=== PATIENT | female | born 1960 | race Caucasian/White ===

== ENCOUNTER 2020-03-14 15:11 | Emergency (ER) | payer OTHER, MEDICAID, SELFPAY ==
--- NOTE | ~2020-03-14 | CT_ITS ---
EXAMINATION: CT ANGIOGRAM OF THE CHEST WITH AND WITHOUT CONTRAST (CT PULMONARY ANGIOGRAM FOR PE) CLINICAL INFORMATION: Reason for Exam l chest pain with hx of lung ca ?PE COMPARISON: None TECHNIQUE: Prior to contrast administration, noncontrast localization images were obtained. Subsequently, multidetector volumetric imaging was performed from the thoracic inlet to below the diaphragms following the administration of 65 mL Omnipaque 350 intravenous contrast. No contrast reaction reported Sagittal, coronal, and MIP oblique sagittal reformatted images were obtained on the CT workstation, uploaded to PACS, and reviewed. This CT examination was performed using dose optimization techniques as appropriate, variously including the following: *Automated exposure control *Adjustment of mA and/or kV according to patient size (this includes techniques or standardized protocols for targeted exams where dose is matched to indication/reason for exam; i.e. extremities or head) *Use of iterative reconstruction technique Total exam dose-length product 240 mGy-cm FINDINGS: QUALITY OF STUDY/CONTRAST BOLUS: Satisfactory. PULMONARY ARTERIES: No central or segmental pulmonary emboli. THORACIC AORTA: No aneurysm or dissection. Scattered atherosclerotic calcifications and plaques. LUNG: There is paraseptal emphysematous change and pleural scarring in the bilateral lung apices. Mild centrilobular emphysematous change. There are scattered calcified granulomas (for example in the right middle lobe, series 6, image 215 and in the peripheral aspect of the left lower lobe, series 6, image 351). There is dependent atelectasis at the bilateral lung bases. No focal consolidation. No suspicious nodule or mass. PLEURA: No pleural effusion or pneumothorax. MEDIASTINUM: Normal heart size. No pericardial effusion. There is an enlarged right hilar lymph node that measures up to 1.3 cm in short axis. There is a prominent prevascular node that measures up to 0.7 cm in short axis.. No evidence of septal bowing or right heart strain. There is a right chest port with tip of the catheter in the right atrium. CHEST WALL/AXILLA: No axillary or internal mammary lymphadenopathy. OSSEOUS STRUCTURES: There is a mixed lytic and sclerotic appearance to the upper aspect of the sternal body (series 8, image 44). There is sclerotic change to the anterolateral right third rib (series 6, image 126). There is sclerotic change to the anterior right fourth rib at the costochondral junction. UPPER ABDOMEN: Unremarkable. No reflux of contrast into the hepatic veins to suggest elevated right heart pressures. CT/CT angio chest PE protocol IMPRESSION: 1. No evidence for pulmonary embolism. 2. Mild paraseptal and centrilobular emphysematous change. Dependent atelectasis at the bilateral lung bases. 3. Mixed lytic and sclerotic appearance to the upper aspect of the sternal body. Sclerotic change to the anterolateral right third rib and anterior right fourth rib. Findings are concerning for metastatic disease. Recommend correlation with any history of malignancy VTE: negative
--- NOTE | 2020-03-14 15:15 | ECG_ITS ---
Test Reason : CHEST PAIN Blood Pressure : / mmHG Vent. Rate : 110 BPM Atrial Rate : 110 BPM P-R Int : 130 ms QRS Dur : 070 ms QT Int : 336 ms P-R-T Axes : 029 023 094 degrees QTc Int : 454 ms Sinus tachycardia with Premature atrial complexes Nonspecific ST and T wave abnormality Abnormal ECG No previous ECGs available Referred By: Generic ED Physician Electronically Signed By:LARISSA ARRIETA
--- NOTE | 2020-03-14 15:27 | ED_ITS ---
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 Patient denies any coronary artery disease today what 2 hours prior to arrival while resting all of a sudden patient noticed left-sided squeezing pain radiating to l eft shoulder little nausea no vomiting no diaphoresis no shortness of breath pain is continues with intermittent increase in pain never had similar pain in the past denies any shortness of breath no syncope no palpitation never had similar pain in the past MD complaint: chest heaviness Timing of current episode: constant Prior episodes: No Onset: during rest Pain location: left chest Pain radiation: left arm Severity: moderate Relieving factors: nothing Exacerbating factors: nothing Context: recent illness Related Data Previous Rx's Medication Instructions Recorded oxycodone 5 mg PO Q6H PRN #20 tab 03/14/20 Allergies Allergy/AdvReac Type Severity Reaction Status Date / Time morphine Allergy Rash Verified 03/14/20 15:34 Review of Systems Review of Systems: Constitutional : No Weight loss, No Fever, No Chills ENT/Mouth : No sore throat, No Rhinorrhea Eyes: No Eye Pain, No Swelling Cardiovascular :++ Chest Pain, no palpitations Respiratory : No Cough, No Sputum, no shortness of breath Gastrointestinal : no Nausea, No Vomiting, No Diarrhea, No abdominal Pain, no black stools Genitourinary : No Dysuria, No Urinary Frequency Musculoskeletal : No joint pain, No Myalgias, No Joint Swelling Skin : No Skin Lesions, No rash Neuro : No Weakness, No Numbness, No Dizziness, No Headache Psych : No Anxiety/Panic, No Depression Heme/Lymph: No Bruising, No Lymphadenopathy Endocrine : No Polyuria, No Polydipsia All other systems reviewed and are negative [facility] Past Medical History Medical History Lung cancer Vasculitis Social History Social History Alcohol intake: never Smoking Status: Current every day smoker Use of substances other than those prescribed or required for medical reasons: No Advance Directives: No Advance Directives Information Provided: No Physical Exam Vital Signs: Vital Signs: Last Vital Signs Temp 99.1 F 03/14/20 19:18 Pulse 91 03/14/20 19:18 Resp 23 H 03/14/20 19:18 BP 154/67 H 03/14/20 19:18 Pulse Ox 93 03/14/20 19:18 Body Mass Index 25.7 Appearance: Alert. Oriented X3. No acute distress. Eyes: Pupils equal, round and reactive to light. ENT: Pharynx normal. Neck: Normal inspection. Neck supple. CVS: Normal heart rate and rhythm. Pulses normal. Tender to touch in mid sternum Respiratory: No respiratory distress. Breath sounds normal. Abdomen: Soft and nontender. Bowel sounds are present, no mass palpable, no CVA tenderness Skin: Skin warm and dry. Normal skin color. Normal skin turgor. Extremities: No lower extremity edema. Neuro: Oriented X 3. No motor deficit. No sensory deficit. MDM - Chest Pain MDM Narrative Medical decision making narrative: Patient with chest pain with lung cancer with Mets to the disk and tape machine tender to palpation where she has pain cardiac enzymes 2 sets negative EKG without any acute ST T wave changes CT of cysts of the chest negative for PE but showed lytic lesions in the sternum likely the cause of pain. Patient advised to follow-up with auxiliary engineer/oncologist for her lung cancer Differential Diagnosis Differential diagnosis: Likely unstable angina pectoris, atypical chest pain and chest pain Lab Data Attestation: I reviewed the patient's lab results. Result diagrams: 03/14/20 15:51 03/14/20 15:51 Labs: Lab Results 03/14/20 03/14/20 03/14/20 Range/Units 15:51 15:51 15:51 WBC 9.0 (4.8-10.8) X10*3/uL RBC 4.84 (4.20-5.50) X10*6/uL Hgb 11.9 L (12.0-16.0) g/dl Hct 37.8 (37-47) % MCV 78.1 L (80-98) fL MCH 24.6 L (27.0-33.0) pg MCHC 31.5 (31.0-35.0) g/dl RDW 17.1 H (11.0-16.0) % Plt Count 377 (160-400) X10*3/uL MPV 10.0 (9.4-12.3) fL Immature Gran % (Auto) 0.2 (0.0-0.4) % Neut % (Auto) 57.8 (45-73) % Lymph % (Auto) 33.0 (20-40) % [place] % (Auto) 6.8 (2-11) % Eos % (Auto) 1.4 (0-4) % Baso % (Auto) 0.8 (0-2) % Lymph # (Auto) 3.0 (1.2-4.9) X10*3/uL [place] # (Auto) 0.6 (0.1-1.2) X10*3/uL Eos # (Auto) 0.1 (0.0-0.4) X10*3/uL Baso # (Auto) 0.1 (0.0-0.2) X10*3/uL Abs Immat Gran (auto) 0.02 (0.00-0.03) X10*3/uL Absolute Neuts (auto) 5.2 (2.0-8.3) X10*3/uL Absolute Nucleated RBC 0.000 (0.0-0.012) X10*3/uL Nucleated RBC % (auto) 0.0 (0.0-0.2) /100WBC PT 13.8 H (10.8-13.0) SEC INR 1.2 H (0.9-1.1) APTT 42.2 H (24.1-38.0) SEC Sodium 137 (135-145) mmol/L Potassium 3.4 (3.3-5.1) mmol/L Chloride 101 (96-108) mmol/L Carbon Dioxide 25 (22-29) mmol/L Anion Gap 14 (12-20) BUN 11 (9-16) mg/dL Creatinine 0.62 (0.5-1.4) mg/dL Estim Creat Clear Calc 93.7 Estimated GFR > 60 Random Glucose 129 H (60-115) mg/dL Calcium 8.6 (8.4-10.2) mg/dL Total Bilirubin 0.3 (0.0-1.0) mg/dL Direct Bilirubin < 0.2 (0.0-0.5) mg/dL AST 18 (5-31) U/L ALT 21 (0-31) U/L Alkaline Phosphatase 72 (39-117) U/L Troponin I High Sens (<3.5-17.0) ng/L Total Protein 6.3 L (6.5-8.0) g/dL Albumin 3.6 (3.5-5.0) g/dL 03/14/20 03/14/20 Range/Units 15:51 19:21 WBC (4.8-10.8) X10*3/uL RBC (4.20-5.50) X10*6/uL Hgb (12.0-16.0) g/dl Hct (37-47) % MCV (80-98) fL MCH (27.0-33.0) pg MCHC (31.0-35.0) g/dl RDW (11.0-16.0) % Plt Count (160-400) X10*3/uL MPV (9.4-12.3) fL Immature Gran % (Auto) (0.0-0.4) % Neut % (Auto) (45-73) % Lymph % (Auto) (20-40) % [place] % (Auto) (2-11) % Eos % (Auto) (0-4) % Baso % (Auto) (0-2) % Lymph # (Auto) (1.2-4.9) X10*3/uL [place] # (Auto) (0.1-1.2) X10*3/uL Eos # (Auto) (0.0-0.4) X10*3/uL Baso # (Auto) (0.0-0.2) X10*3/uL Abs Immat Gran (auto) (0.00-0.03) X10*3/uL Absolute Neuts (auto) (2.0-8.3) X10*3/uL Absolute Nucleated RBC (0.0-0.012) X10*3/uL Nucleated RBC % (auto) (0.0-0.2) /100WBC PT (10.8-13.0) SEC INR (0.9-1.1) APTT (24.1-38.0) SEC Sodium (135-145) mmol/L Potassium (3.3-5.1) mmol/L Chloride (96-108) mmol/L Carbon Dioxide (22-29) mmol/L Anion Gap (12-20) BUN (9-16) mg/dL Creatinine (0.5-1.4) mg/dL Estim Creat Clear Calc Estimated GFR Random Glucose (60-115) mg/dL Calcium (8.4-10.2) mg/dL Total Bilirubin (0.0-1.0) mg/dL Direct Bilirubin (0.0-0.5) mg/dL AST (5-31) U/L ALT (0-31) U/L Alkaline Phosphatase (39-117) U/L Troponin I High Sens 6.7 6.9 (<3.5-17.0) ng/L Total Protein (6.5-8.0) g/dL Albumin (3.5-5.0) g/dL ECG Data ECG #1: Attestation: I personally reviewed and interpreted this ECG as follows: Interpretation: Sinus tachycardia with heart rate of 110 beats per minute slight ST depression in V5 for V5 V6 no reciprocal changes normal axis normal intervals Discharge Plan Discharge Clinical Impression: Atypical chest pain, Lung cancer metastatic to bone Patient Disposition: Home, Self-Care Instructions: Chest Pain (ED), Lung Cancer (DC), Bone Metastasis (ED) Additional Instructions: Rest at home follow-up with your oncologist as scheduled take pain medication as advised Prescriptions: New oxycodone 5 mg tablet 5 mg PO Q6H PRN (Reason: Pain (Scale Score 4-6)) Qty: 20 RF: 0 Interventions: ED Discharge Assessment Last Done: 03/14/20 21:00 Discharge Date/Time: 03/14/20 21:00
[2020-03-14 15:31] VITALS: BP 129/56; PULSE 100; RESP 16; TEMP 37.1; O2SAT 97; BMI 25.7
[2020-03-14 15:55] VITALS: BP 125/60; PULSE 89; RESP 16
[2020-03-14] MEDS: HYDROmorphone HCl 0.5 MG/0.5 ML SYRINGE IVPUSH (15:55)
[2020-03-14] MEDS: Aspirin 81 MG TAB.CHEW 162 MG PO (15:55)
[2020-03-14] MEDS: Nitroglycerin 2 % Oint 1 GM Packet 0.5 INCH TRANSDERMA (15:55)
[2020-03-14 15:56] LABS: Basophils Absolute Auto 0.1 X10*3/uL (0.0-0.2); Basophils Percent Auto 0.8 % (0-2); Eosinophils Absolute Auto 0.1 X10*3/uL (0.0-0.4); Eosinophils Percent Auto 1.4 % (0-4); Hematocrit 37.8 % (37-47); Hemoglobin 11.9 g/dl (12.0-16.0); Imm Gran Abs Auto 0.02 X10*3/uL (0.00-0.03); Imm Gran Pct Auto 0.2 % (0.0-0.4); Mean Corpuscular HGB Conc 31.5 g/dl (31.0-35.0); Mean Corpuscular Hemoglobin 24.6 pg (27.0-33.0); Mean Corpuscular Volume 78.1 fL (80-98); Monocytes Absolute Auto 0.6 X10*3/uL (0.1-1.2); Monocytes Percent Auto 6.8 % (2-11); Neutrophils Absolute Auto 5.2 X10*3/uL (2.0-8.3); Neutrophils Percent Auto 57.8 % (45-73); Platelet Count 377 X10*3/uL (160-400); Red Blood Count 4.84 X10*6/uL (4.20-5.50); Red Cell Distribution Width 17.1 % (11.0-16.0)
[2020-03-14 15:57] LABS: MANUAL DIFF FLAG NO
[2020-03-14] MEDS: ondansetron HCL 4 MG/2 ML VIAL IVPUSH (15:57)
[2020-03-14 16:03] LABS: INTERNATIONAL NORM RATIO 1.2 (0.9-1.1); Prothrombin Time 13.8 SEC (10.8-13.0)
[2020-03-14 16:06] LABS: Partial Thromboplastin Time 42.2 SEC (24.1-38.0)
[2020-03-14 16:21] LABS: Alanine Aminotransferase 21 U/L (0-31); Albumin Level 3.6 g/dL (3.5-5.0); Alkaline Phosphatase 72 U/L (39-117); Anion Gap 14 (12-20); Aspartate Amino Transferase 18 U/L (5-31); Bilirubin Direct < 0.2 mg/dL (0.0-0.5); Bilirubin Total 0.3 mg/dL (0.0-1.0); Blood Urea Nitrogen 11 mg/dL (9-16); Calcium 8.6 mg/dL (8.4-10.2); Carbon Dioxide 25 mmol/L (22-29); Chloride 101 mmol/L (96-108); Creatinine Clr Calc Pharmacy 93.7; Estimated Glomerular Filt Rate > 60; Glucose Random 129 mg/dL (60-115); Potassium 3.4 mmol/L (3.3-5.1); Sodium 137 mmol/L (135-145); Total Protein 6.3 g/dL (6.5-8.0)
[2020-03-14 16:26] LABS: Troponin-I High Sensitivity 6.7 ng/L (<3.5-17.0)
[2020-03-14] MEDS: iohexoL 350 MG/ML 100 ML INFUS..BTL IV (17:58)
[2020-03-14 19:18] VITALS: BP 154/67; PULSE 91; RESP 23; TEMP 37.3; O2SAT 93
[2020-03-14] MEDS: HYDROmorphone HCl 1 MG/ML SYRINGE IVPUSH (19:18)
[2020-03-14 20:04] LABS: Troponin-I High Sensitivity 6.9 ng/L (<3.5-17.0)
== END 2020-03-14 21:00 | disposition home or self-care (01) ==
PROVIDERS: Emergency Provider Internal Medicine; PCP Internal Medicine
DX: R07.89 Other chest pain (principal); C34.90 Malignant neoplasm of unspecified part of unspecified bronchus or lung; C79.51 Secondary malignant neoplasm of bone; F17.200 Nicotine dependence, unspecified, uncomplicated; Z71.6 Tobacco abuse counseling; Z79.899 Other long term (current) drug therapy
CPT/HCPCS: 36415; 71275; 80048; 80076; 84484; 85025; 85610; 85730; 93005; 96374; 96375; 96376; 99284; J1170; J1642; J2405; Q9967

== ENCOUNTER 2020-07-07 08:42 | Outpatient (REF) | payer OTHER, MEDICARE, SELFPAY | END 2020-07-07 08:43 | disposition home or self-care (01) | LOC: HO.LAB 08:42 | PROVIDERS: PCP Internal Medicine; Visit Provider Hospitalist | DX: J41.1 Mucopurulent chronic bronchitis (principal); C34.90 Malignant neoplasm of unspecified part of unspecified bronchus or lung; C79.9 Secondary malignant neoplasm of unspecified site; S22.49XS Multiple fractures of ribs, unspecified side, sequela; X58.XXXS Exposure to other specified factors, sequela; F17.210 Nicotine dependence, cigarettes, uncomplicated; Z88.5 Allergy status to narcotic agent; Z79.891 Long term (current) use of opiate analgesic; Z79.52 Long term (current) use of systemic steroids; Z79.899 Other long term (current) drug therapy | CPT/HCPCS: 87070; 87205 ==

== ENCOUNTER 2020-07-21 08:50 | Outpatient (REF) | payer OTHER, MEDICAID, MEDICARE, SELFPAY ==
--- NOTE | 2020-07-21 17:31 | PFT_ITS ---
INDICATION: Chronic bronchitis. SPIROMETRY: The FEV1 to FVC of 81% with an FEV1 of 1.9 L, which is 72% predicted and FVC of 2.34 L, which is 70% predicted. No significant response to bronchodilators noted. Maximum voluntary ventilation 102% predicted. LUNG VOLUMES: Total lung capacity 85% predicted with residual volume of 102% predicted and expiratory reserve volume of 20% predicted. DIFFUSION CAPACITY: DLCO 60% predicted. INTERPRETATION: No obstructive nor restrictive ventilatory defects identified. No significant response to bronchodilators noted, although there was a trend. Normal maximum voluntary ventilation. Lung volumes are within normal limits except for decrease in the expiratory reserve volume. In addition to that, there is a moderate diffusion impairment. Clinical correlation warranted. Manpreet Esquivel MD MR/MODL / [id number]
== END 2020-07-21 08:51 | disposition home or self-care (01) ==
LOC: HO.RESP 08:50
PROVIDERS: PCP Internal Medicine; Visit Provider Hospitalist
DX: J41.1 Mucopurulent chronic bronchitis (principal)
CPT/HCPCS: 94060; 94727; 94729

== ENCOUNTER → 2020-08-17 08:53 | Outpatient (BNVA) | payer OTHER, MEDICAID, SELFPAY | PROVIDERS: PCP Internal Medicine; Visit Provider Hospitalist | DX: J44.9 Chronic obstructive pulmonary disease, unspecified (principal) ==

== ENCOUNTER 2020-12-13 13:56 | Emergency (ER) | payer OTHER, MEDICAID, SELFPAY ==
--- NOTE | 2020-12-13 | ECG_ITS ---
Test Reason : CHEST PAIN Blood Pressure : / mmHG Vent. Rate : 081 BPM Atrial Rate : 081 BPM P-R Int : 120 ms QRS Dur : 072 ms QT Int : 390 ms P-R-T Axes : 054 031 062 degrees QTc Int : 453 ms Normal sinus rhythm Normal ECG Heart rate has decreased Referred By: Generic ED Physician Electronically Signed By:SHAWNEE SWENSON MD
--- NOTE | ~2020-12-13 | XR_ITS ---
EXAMINATION: PORTABLE CHEST 1 VIEW CLINICAL INFORMATION: L upper CP, hx sternal/bone CA . COMPARISON: 03/14 CT scan. TECHNIQUE: Portable frontal view of the chest was obtained. FINDINGS: Lungs well-expanded with no superimposed focal infiltrate, effusion, edema, or pneumothorax. Right-sided chest port is seen with the tip near the expected cavoatrial junction. Cardiac mediastinal silhouettes within normal limits for size. I do not appreciate any acute bony abnormality on this portable chest x-ray. The changes in the bilateral ribs and sternum were much better delineated on the prior CT scan the chest XR/XR chest 1V IMPRESSION: Right-sided chest port. I do not appreciate any acute airspace disease or edema.
[2020-12-13 14:33] VITALS: BP 159/62; PULSE 76; RESP 16; TEMP 36.1; O2SAT 95; BMI 25.2
--- NOTE | 2020-12-13 14:40 | ED_ITS ---
HPI - Chest Pain General Chief Complaint: Chest Pain Stated Complaint: chest pain Time Seen by Provider: 12/13/20 14:31 Source: patient Mode of arrival: ambulatory Limitations: no limitations History of Present Illness HPI narrative: Patient comes emergency room complaining of left-sided chest pain. Patient states that the pain has been constant on the left side of the chest for 2 months, this morning she woke up with significant chest pain on left side, got worse over the last 3 hours. Patient states it is a specific spot. Patient has been diagnosed previously with lung cancer with metastasis to the pancreas, right hip and sternum. Patient states that this pain is from a year to her, usually resolves with oral pain medication/oxycodone. However, this time the pain continued and actually got worse. Patient states she has no shortness of breath, denies any injuries, no heavy lifting. Patient states that she finished immunotherapy, patient is currently being evaluated for further treatment, undecided this patient will need radiation. Patient has several imaging studies coming up in the next couple of weeks. Related Data Home Medications Medication Instructions Recorded Confirmed atorvastatin 80 mg tablet 80 mg PO BEDTIME 07/07/20 08/17/20 clonazepam 0.5 mg tablet [id number]? mg PO TID PRN 07/07/20 08/17/20 omeprazole 40 mg capsule,delayed 40 mg PO DAILY 07/07/20 08/17/20 release paroxetine HCl 30 mg tablet 60 mg PO QAM 07/07/20 08/17/20 prednisone 20 mg tablet 40 mg PO BID 07/07/20 08/17/20 prochlorperazine maleate 10 mg 10 mg PO Q6H PRN 07/07/20 08/17/20 tablet fluconazole 200 mg tablet 200 mg PO DAILY 08/17/20 08/17/20 Previous Rx's Medication Instructions Recorded oxycodone 5 mg tablet 5 mg PO Q6H PRN #20 tab 03/14/20 albuterol sulfate 2.5 mg (3 mL) INHALATION Q4H PRN 07/07/20 30 Days #180 ml albuterol sulfate 90 mcg/actuation 2 puff INHALATION QID PRN #8.5 g 07/07/20 aerosol inhaler Symbicort 160 mcg-4.5 2 puff INHALATION BID 30 Days 07/09/20 mcg/actuation HFA aerosol inhaler #10.2 g NS (budesonide-formoterol) Allergies Allergy/AdvReac Type Severity Reaction Status Date / Time morphine Allergy Rash Verified 08/17/20 09:07 Review of Systems Review of Systems: Constitutional : No Weight loss, No Fever, No Chills, No Night Sweats, No Fatigue, No Malaise ENT/Mouth : No Hearing loss, No Ear Pain, No Nasal Congestion, No Sinus Pain, No Hoarseness, No sore throat, No Rhinorrhea, No Swallowing Difficulty Eyes: No Eye Pain, No Swelling, No Redness, No Foreign Body, No Discharge, No Vision Changes Cardiovascular : Complaining of left-sided bony chest pain, No SOB, No Dyspnea on Exertion, No Orthopnea, No Edema, No Palpitations Respiratory : No Cough, No Sputum, No Wheezing, No Smoke Exposure, No Dyspnea Gastrointestinal : No Nausea, No Vomiting, No Diarrhea, No Constipation, No abdominal Pain, No Hematochezia, No Melena Genitourinary : no irregular bleeding, No Dysuria, No Urinary Frequency, No Hematuria, No Urinary Incontinence, No Urgency, No Flank Pain, No Urinary Flow Changes, No Hesitancy Musculoskeletal : No joint pain, No Myalgias, No Joint Swelling Skin : No Skin Lesions, No rash Neuro : No Weakness, No Numbness, No Paresthesias, No Loss of Consciousness, No Dizziness, No Headache Psych : No Anxiety/Panic, No Depression, No SI/HI/AH/VH, No Social Issues, Heme/Lymph: No Bruising, No Bleeding,No Lymphadenopathy Endocrine : No Polyuria, No Polydipsia, No Temperature Intolerance [facility] Past Medical History Medical History Lung cancer Pulmonary nodule Rib fractures Vasculitis Social History Social History (Updated 07/07/20 @ 08:54 by YESY Salinas) Alcohol intake: never Patient Tobacco Use Status: Current everyday Tobacco user Tobacco use type: Cigarette Years Smoked: 43 years Advance Directives: No Advance Directives Information Provided: Yes Physical Exam Vital Signs: Vital Signs: Last Vital Signs Temp 97 F 12/13/20 14:33 Pulse 76 12/13/20 14:33 Resp 16 12/13/20 14:33 BP 159/62 H 12/13/20 14:33 Pulse Ox 95 12/13/20 14:33 Body Mass Index 25.2 Const: Other: Appearance: Alert. Oriented X3. No acute distress. Eyes: Pupils equal, round and reactive to light. ENT: Pharynx normal. Neck: Normal inspection. Neck supple. No lymph nodes noted. No crepitus CVS: Normal heart rate and rhythm. Pulses normal. Normal S1 and S2, reproducible chest pain to palpation over the anterior ribs, palpable port Respiratory: No respiratory distress. Breath sounds normal. No Wheezing. No rales Abdomen: Soft and nontender. No rigidity. No distention. Skin: Skin warm and dry. Normal skin color. Normal skin turgor. Extremities: No lower extremity edema. No Lacerations. No Rash Neuro: Oriented X 3. No motor deficit. No sensory deficit. Moving all extermities. No slurred speech. Course Course Course Narrative: Patient states the pain improved but she still having some pain over her ribs. I discussed with the patient that the D-dimer/troponin/EKG were all normal. Patient states that she has a CT scan/CT scan pending in couple of weeks. No obvious bony deformities, discussed with the patient that x-ray is not the most specific test for bone lesions. Patient will follow-up with her PCP and specialists MDM - Chest Pain Lab Data Result diagrams: 12/13/20 15:21 12/13/20 15:21 Labs: Lab Results 12/13/20 12/13/20 12/13/20 Range/Units 15:21 15:21 15:21 WBC 8.8 (4.8-10.8) X10*3/uL RBC 4.60 (4.20-5.50) X10*6/uL Hgb 12.9 (12.0-16.0) g/dl Hct 40.0 (37.0-47.0) % MCV 87.0 (80.0-98.0) fL MCH 28.0 (27.0-33.0) pg MCHC 32.3 (31.0-35.0) g/dl RDW 15.9 (11.0-16.0) % Plt Count 332 (160-400) X10*3/uL MPV 10.1 (9.4-12.3) fL Immature Gran % (Auto) 0.1 (0.0-0.4) % Neut % (Auto) 80.8 H (45-73) % Lymph % (Auto) 16.7 L (20-40) % [place] % (Auto) 1.5 L (2-11) % Eos % (Auto) 0.1 (0-4) % Baso % (Auto) 0.8 (0-2) % Lymph # (Auto) 1.5 (1.2-4.9) X10*3/uL [place] # (Auto) 0.1 (0.1-1.2) X10*3/uL Eos # (Auto) 0.0 (0.0-0.4) X10*3/uL Baso # (Auto) 0.1 (0.0-0.2) X10*3/uL Abs Immat Gran (auto) 0.01 (0.00-0.03) X10*3/uL Absolute Neuts (auto) 7.1 (2.0-8.3) x10*3/uL Absolute Nucleated RBC 0.000 (0.0-0.012) X10*3/uL Nucleated RBC % (auto) 0.0 (0.0-0.2) /100WBC D-Dimer NG/ML Sodium 140 (135-145) mmol/L Potassium 4.2 D (3.3-5.1) mmol/L Chloride 105 (96-108) mmol/L Carbon Dioxide 28 (22-29) mmol/L Anion Gap 11 L (12-20) BUN 10 (9-16) mg/dL Creatinine 0.58 (0.5-1.4) mg/dL Estim Creat Clear Calc 99.3 Estimated GFR > 60 Random Glucose 138 H (60-115) mg/dL Calcium 9.0 (8.4-10.2) mg/dL Total Bilirubin 0.2 (0.0-1.0) mg/dL Direct Bilirubin < 0.2 (0.0-0.5) mg/dL AST 12 (5-31) U/L ALT 11 (0-31) U/L Alkaline Phosphatase 56 D (39-117) U/L Troponin I High Sens 4.6 (<3.5-17.0) ng/L Total Protein 6.8 (6.5-8.0) g/dL Albumin 3.8 (3.5-5.0) g/dL 12/13/20 Range/Units 15:21 WBC (4.8-10.8) X10*3/uL RBC (4.20-5.50) X10*6/uL Hgb (12.0-16.0) g/dl Hct (37.0-47.0) % MCV (80.0-98.0) fL MCH (27.0-33.0) pg MCHC (31.0-35.0) g/dl RDW (11.0-16.0) % Plt Count (160-400) X10*3/uL MPV (9.4-12.3) fL Immature Gran % (Auto) (0.0-0.4) % Neut % (Auto) (45-73) % Lymph % (Auto) (20-40) % [place] % (Auto) (2-11) % Eos % (Auto) (0-4) % Baso % (Auto) (0-2) % Lymph # (Auto) (1.2-4.9) X10*3/uL [place] # (Auto) (0.1-1.2) X10*3/uL Eos # (Auto) (0.0-0.4) X10*3/uL Baso # (Auto) (0.0-0.2) X10*3/uL Abs Immat Gran (auto) (0.00-0.03) X10*3/uL Absolute Neuts (auto) (2.0-8.3) x10*3/uL Absolute Nucleated RBC (0.0-0.012) X10*3/uL Nucleated RBC % (auto) (0.0-0.2) /100WBC D-Dimer < 200 NG/ML Sodium (135-145) mmol/L Potassium (3.3-5.1) mmol/L Chloride (96-108) mmol/L Carbon Dioxide (22-29) mmol/L Anion Gap (12-20) BUN (9-16) mg/dL Creatinine (0.5-1.4) mg/dL Estim Creat Clear Calc Estimated GFR Random Glucose (60-115) mg/dL Calcium (8.4-10.2) mg/dL Total Bilirubin (0.0-1.0) mg/dL Direct Bilirubin (0.0-0.5) mg/dL AST (5-31) U/L ALT (0-31) U/L Alkaline Phosphatase (39-117) U/L Troponin I High Sens (<3.5-17.0) ng/L Total Protein (6.5-8.0) g/dL Albumin (3.5-5.0) g/dL Imaging Data Chest x-ray: Radiologist's impression: FINDINGS: Lungs well-expanded with no superimposed focal infiltrate, effusion, edema, or pneumothorax. Right-sided chest port is seen with the tip near the expected cavoatrial junction. Cardiac mediastinal silhouettes within normal limits for size. I do not appreciate any acute bony abnormality on this portable chest x-ray. The changes in the bilateral ribs and sternum were much better delineated on the prior CT scan the chest XR/XR chest 1V IMPRESSION: Right-sided chest port. I do not appreciate any acute airspace disease or edema. ECG Data ECG #1: Attestation: I personally reviewed and interpreted this ECG as follows: (Sign out for, her ID 1, no ST segment depression or elevation, no T-wave inversion, QTC 453) Discharge Plan Discharge Clinical Impression: Costochondritis, Atypical chest pain Patient Disposition: Home, Self-Care Instructions: Costochondritis (ED) Additional Instructions: Please follow-up with your primary care physician tomorrow. If you have any worsening or new symptoms, please return to the emergency room or call 911 Prescriptions: No Action budesonide-formoterol [Symbicort] 160-4.5 mcg/actuation HFA aerosol inhaler 2 puff inhalation BID 30 Days Qty: 10.2 RF: 11 oxycodone 5 mg tablet 5 mg PO Q6H PRN (Reason: Pain (Scale Score 4-6)) Qty: 20 RF: 0 fluconazole 200 mg tablet 200 mg PO DAILY RF: 0 levalbuterol HCl 1.25 mg/3 mL solution for nebulization 1.25 mg inhalation ONCE Qty: 3 RF: 0 sodium chloride 0.9 % solution for nebulization 4 ml inhalation ONCE Qty: 4 RF: 0 clonazepam 0.5 mg tablet [id number]? mg PO TID PRN (Reason: anxiety) RF: 0 paroxetine HCl 30 mg tablet 60 mg PO QAM RF: 0 prednisone 20 mg tablet 40 mg PO BID RF: 0 prochlorperazine maleate 10 mg tablet 10 mg PO Q6H PRN (Reason: nausea/vomiting) RF: 0 atorvastatin 80 mg tablet 80 mg PO BEDTIME RF: 0 omeprazole 40 mg capsule,delayed release(DR/EC) 40 mg PO DAILY RF: 0 albuterol sulfate 90 mcg/actuation HFA aerosol inhaler 2 puff inhalation QID PRN (Reason: wheezing) Qty: 8.5 RF: 11 albuterol sulfate 2.5 mg /3 mL (0.083 %) solution for nebulization 2.5 mg inhalation Q4H PRN (Reason: shortness of breath or wheezing) 30 Days Qty: 180 RF: 11
[2020-12-13] MEDS: HYDROmorphone HCl 1 MG/ML SYRINGE IVPUSH ×2 (15:22→16:47)
[2020-12-13] MEDS: Aspirin Enteric Coated 325 MG TABLET.DR PO (15:22)
[2020-12-13 15:37] LABS: Basophils Absolute Auto 0.1 X10*3/uL (0.0-0.2); Basophils Percent Auto 0.8 % (0-2); Eosinophils Percent Auto 0.1 % (0-4); Hemoglobin 12.9 g/dl (12.0-16.0); Imm Gran Abs Auto 0.01 X10*3/uL (0.00-0.03); Imm Gran Pct Auto 0.1 % (0.0-0.4); Lymphocytes Absolute Auto 1.5 X10*3/uL (1.2-4.9); Lymphocytes Percent Auto 16.7 % (20-40); MANUAL DIFF FLAG NO; Mean Corpuscular HGB Conc 32.3 g/dl (31.0-35.0); Mean Platelet Volume 10.1 fL (9.4-12.3); Monocytes Absolute Auto 0.1 X10*3/uL (0.1-1.2); Monocytes Percent Auto 1.5 % (2-11); Neutrophils Absolute Auto 7.1 x10*3/uL (2.0-8.3); Neutrophils Percent Auto 80.8 % (45-73); Platelet Count 332 X10*3/uL (160-400); Red Cell Distribution Width 15.9 % (11.0-16.0); White Blood Count 8.8 X10*3/uL (4.8-10.8)
--- NOTE | 2020-12-13 15:40 | PC.NURSE ---
port accessed, patient medicated per order, vss, will continue to monitor.
[2020-12-13 15:46] LABS: D Dimer < 200 NG/ML
[2020-12-13 15:53] LABS: Alanine Aminotransferase 11 U/L (0-31); Albumin Level 3.8 g/dL (3.5-5.0); Alkaline Phosphatase 56 U/L (39-117); Anion Gap 11 (12-20); Aspartate Amino Transferase 12 U/L (5-31); Bilirubin Direct < 0.2 mg/dL (0.0-0.5); Bilirubin Total 0.2 mg/dL (0.0-1.0); Blood Urea Nitrogen 10 mg/dL (9-16); Carbon Dioxide 28 mmol/L (22-29); Chloride 105 mmol/L (96-108); Creatinine Clr Calc Pharmacy 99.3; Estimated Glomerular Filt Rate > 60; Glucose Random 138 mg/dL (60-115); Potassium 4.2 mmol/L (3.3-5.1); Sodium 140 mmol/L (135-145); Total Protein 6.8 g/dL (6.5-8.0)
[2020-12-13 15:59] LABS: Troponin-I High Sensitivity 4.6 ng/L (<3.5-17.0)
[2020-12-13 16:48] VITALS: BP 151/55; PULSE 67; RESP 18; O2SAT 96
[2020-12-13] MEDS: Heparin Sodium,Porcine Flush 500 UNIT/5 ML SYRINGE IVFLUSH (17:29)
== END 2020-12-13 17:45 | disposition home or self-care (01) ==
PROVIDERS: Emergency Provider Emergency Medicine; PCP Internal Medicine
DX: M94.0 Chondrocostal junction syndrome [Tietze] (principal); R07.89 Other chest pain; Z85.118 Personal history of other malignant neoplasm of bronchus and lung; Z85.07 Personal history of malignant neoplasm of pancreas; Z79.02 Long term (current) use of antithrombotics/antiplatelets; Z79.899 Other long term (current) drug therapy
CPT/HCPCS: 36415; 71045; 80048; 80076; 84484; 85025; 85379; 93005; 96374; 96376; 99284; 99285; J1170; J1642

== ENCOUNTER → 2020-12-21 08:38 | Outpatient (BNVA) | payer OTHER, MEDICAID, SELFPAY | PROVIDERS: PCP Internal Medicine; Visit Provider Hospitalist | DX: J44.9 Chronic obstructive pulmonary disease, unspecified (principal) ==

== ENCOUNTER → 2021-03-23 08:34 | Outpatient (BNVA) | payer OTHER, MEDICAID, SELFPAY | PROVIDERS: PCP Internal Medicine; Visit Provider Hospitalist | DX: J44.9 Chronic obstructive pulmonary disease, unspecified (principal) ==